=== PATIENT | male | born 1975 | race Asian ===

== ENCOUNTER 2018-07-11 15:12 | Outpatient (CLI) | payer OTHER ==
--- NOTE | 2018-07-11 16:52 | RAD ---
RIGHT WRIST 3 VIEWS: HISTORY: A 43-year-old male with a history of right wrist pain. FINDINGS: There is some patchy periarticular bony demineralization. No evidence for acute fracture or dislocat ion. IMPRESSION: Patchy periarticular bony demineralization with some generalized degenerative changes without acute f racture or dislocation. POS: [facility]
== END 2018-07-11 15:13 | disposition home or self-care (01) ==
LOC: RAD-FRANK 15:12
PROVIDERS: ATTEND Nurse Practitioner Family
DX: M25.531 Pain in right wrist (principal); M19.031 Primary osteoarthritis, right wrist

== ENCOUNTER 2018-12-05 08:39 | Outpatient (CLI) | payer OTHER ==
--- NOTE | 2018-12-05 09:39 | RAD ---
LEFT ANKLE 3 VIEWS: Date: 12/05/18 HISTORY: Pain. COMPARISON: Ankle radiograph from 2015. FINDINGS: There is medial and lateral ankle mortise osteophytes indicating degenerative disease. No acute fract ure or malalignment. There is a moderate size joint effusion. Moderate size dorsal calcaneal spur. IMPRESSION: Degenerative changes of the ankle mortise without acute fracture or malalignment. Moderate size joint effusion may be sequelae of synovitis versus reactive from degenerative changes. POS: [facility]
== END 2018-12-05 08:40 | disposition home or self-care (01) ==
LOC: RAD-FRANK 08:39
PROVIDERS: ATTEND Nurse Practitioner Family
DX: M25.572 Pain in left ankle and joints of left foot (principal); M19.072 Primary osteoarthritis, left ankle and foot; M25.472 Effusion, left ankle

== ENCOUNTER 2019-01-20 10:22 | Outpatient (CLI) | payer OTHER ==
--- NOTE | 2019-01-20 11:43 | RAD ---
LEFT KNEE 4 VIEWS: HISTORY: Knee pain and swelling. There is a minimal joint effusion present. There is not any significant arthritic change. No signs of fracture. IMPRESSION: Essentially unremarkable left knee. POS: [facility]
== END 2019-01-20 10:23 | disposition home or self-care (01) ==
LOC: RAD-FRANK 10:22
PROVIDERS: ATTEND Nurse Practitioner Family
DX: M25.562 Pain in left knee (principal)